=== PATIENT | male | born 1985 | race Caucasian/White ===

== ENCOUNTER → 2019-01-18 | Outpatient (CLI) | payer OTHER ==
[2019-01-19 14:12] LABS: AMP/METHAMP Negative (Negative); BARBITURATES Negative (Negative); BENZODIAZEPINES Negative (Negative); COCAINE Negative (Negative); METHADONE Negative (Negative); OPIATES Negative (Negative); PCP Negative (Negative)
--- NOTE | 2019-01-23 21:43 | SLE ---
[facility] [place] [address] POLYSOMNOGRAPHY STUDY Name: RAFAEL HALL Room #: REG [facility]#: [id number] Admission: 01/18/19 ������������������ Attend Phys: Mor Ortega MD Discharge: ������������������ Date of : 87 Report #: [id number] THIS REPORT FOR: //name// CC: Mor Ortega FAM unknown Patricio Sanchez DATE OF SERVICE: 01/19/2019 MULTIPLE SLEEP LATENCY TESTS ATTENDING PHYSICIAN: Dr. Patricio Sanchez. The patient is a 33-year-old who was referred to sleep lab for overnight polysomnogram followed by MSLT. The results of the polysomnogram are discussed previously. The patient has history of chronic insomnia resulting from posttraumatic stress disorder. He has an irregular sleep-wake pattern and on average sleeps about 3 hours at a time. Review of the sleep diaries confirms the patient's history. The patient underwent polysomnogram the night before MSLT and was found to have normal sleep efficiency of 96%. There was no evidence of clinically significant sleep disordered breathing and there was no evidence of clinically significant PLMS. Multiple sleep latency test was performed per protocol. The patient was allowed 5 daytime nap opportunities spaced at 2 hr intervals, beginning at 8:01 a.m. During the first nap session, the patient's sleep latency was 2 minutes and 36 seconds and no REM sleep was observed. During the second nap session sleep latency was 1 minute and 30 seconds and REM sleep was observed. During the third nap session, sleep latency was 5 minutes and 42 seconds and no REM sleep observed. During the fourth session, sleep latency was 14 minutes and no REM sleep was observed and during the fifth nap session, sleep latency was 17 minutes and 6 seconds and no REM sleep was observed. The patient's mean sleep latency for the 5 naps was 8 minutes and 13 seconds with 1 REM sleep period observed. IMPRESSION: 1. Abnormal multiple sleep latency test with a short mean sleep latency of 8 minutes. This is suggestive of Idiopathic hypersomnia. The patient does not meet the MSLT criteria for Narcolepsy. 2. Chronic sleep deprivation can also result in rebound hypersomnia and abnormal MSLT as above. RECOMMENDATIONS: [facility] [address] [place] [address] POLYSOMNOGRAPHY STUDY Name: RAFAELRAFAEL DAXA Room #: REG [facility]#: [id number] Admission: 01/18/19 ������������������ Attend Phys: Mor Ortega MD Discharge: ������������������ Date of : [birth year] Report #: [id number] 1. As discussed above, patient's multiple sleep latency tests was abnormal. Review of the patient's polysomnogram revealed that the patient's sleep efficiency was 96% and the sleep diary prior to the polysomnogram suggest that the patient was averaging about 3 hours of sleep. It is certainly possible that the abnormal multiple sleep latency test is the results of the patient's multiple prior nights of sleep deprivation. The patient had a reduced REM sleep on the overnight polysomnogram and the presence of one REM sleep on the daytime naps may be related to REM rebound. It is also interesting to note that the patient's sleep latency continued to prolong on the subsequent nap sessions, again suggesting that abnormal MSLT may be as a result of prior multiple nights sleep deprivation. 2. The patient should be referred to psychiatrist regarding his posttraumatic stress disorder, resulting in patient's chronic insomnia. 3. The patient would also be a candidate for cognitive behavior treatment for chronic insomnia. 4. Avoid [employer] depressants. 5. Cautioned regarding driving until the patient's hypersomnia is resolved. 6. The patient can be tried on stimulant medication to see any clinical benefit. However, the initial goal of treatment should be to increase sleep duration and regulate sleep cycle. 7. Good sleep hygiene is also recommended. ��������������������������������������������� <ELECTRONICALLY SIGNED> ���������������������������������������� By: Mor Ortega MD ��������������������������������������������� 01/23/19 2143 [id number] 1827 Mor Ortega MD /nt
--- NOTE | 2019-01-23 21:43 | SLE ---
[facility] [place] [address] POLYSOMNOGRAPHY STUDY Name: RAFAEL HALL Room #: REG [facility]#: [id number] Admission: 01/18/19 ������������������ Attend Phys: Mor Ortega MD Discharge: ������������������ Date of : 87 Report #: [id number] THIS REPORT FOR: //name// CC: Mor Ortega FAM unknown Patricio Sanchez MD DATE OF SERVICE: 01/18/2019 SLEEP STUDY ATTENDING PHYSICIAN: Dr. Patricio Sanchez. The patient is 33 years old who weighs 150 pounds with a BMI of 21.5. The patient has [id number] subjective hypersomnia with an [place] score of 15. The patient has history of posttraumatic stress disorder. 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 After that he has severe insomnia along with irregular sleep-wake pattern. Review of sleep diary suggests that he averages about 3 hours of sleep at a time. He was sent to the sleep lab for further evaluation. Polysomnogram was ordered followed by MSLT. The results of polysomnogram are available here. During the night study, the patient spent 428 minutes in bed and slept for 411 minutes with an excellent sleep efficiency of 96%. Sleep latency was 8.3 minutes with a REM latency of 95 minutes. Overall, sleep architecture showed normal stage 1 sleep, increased stage 2 sleep, normal slow wave and reduced REM sleep, which was 12.6% of the total sleep time. During the night study, the patient had 1 obstructive apnea, 2 mixed apneas, 1 central apnea and no hypopneas. The patient's apnea-hypopnea index for the entire night was 0.6 per hour with no REM related events observed. The patient's supine AHI was 1 per hour. EKG monitoring revealed an average heart rate of 81 beats per minute. No sustained arrhythmias observed. PLMS were seen at an index of 7 per hour and 1 per hour caused EEG arousals. Nocturnal oximetry study revealed an average oxygen saturation of 96% with the lowest of 93%. Due to low AHI, the patient did not meet the split night criteria for CPAP initiation. IMPRESSION: [facility] [address] [place] [address] POLYSOMNOGRAPHY STUDY Name: RAFAELRAFAEL MITTAL Room #: REG [facility]#: [id number] Admission: 01/18/19 ������������������ Attend Phys: Mor Ortega MD Discharge: ������������������ Date of : 87 Report #: [id number] 1. No clinically significant sleep disordered breathing. The patient's AHI was only 0.6 per hour. 2. Normal sleep efficiency of 96% in a patient who has a history of chronic insomnia with an average sleep of 3 hours at a time and irregular sleep-wake pattern. The normal sleep efficiency could be a result of prior night sleep deprivation with rebound sleep. Sleep state misperception clinically seems to be less likely. 3. No clinically significant periodic limb movements. 4. No clinically significant nocturnal hypoxia. RECOMMENDATIONS: 1. The patient did not meet the criteria for CPAP initiation. 2. Avoid [employer]GER [employer] depressants. 3. Cautioned regarding driving until the patient's hypersomnia is resolved. 4. Regarding the patient's history of chronic insomnia, the patient should be referred to psychiatrist for the treatment of his posttraumatic stress disorder. 5. The patient may be a candidate for cognitive behavior treatment for his chronic insomnia. 6. The patient underwent an MSLT the next day, which will be reported separately. ��������������������������������������������� <ELECTRONICALLY SIGNED> ���������������������������������������� By: Mor Ortega MD ��������������������������������������������� 01/23/19 2143 [id number] [id number] Mor Ortega MD /nt
== END ==
LOC: SLEEPLAB 12:05
PROVIDERS: Internal Medicine Critical Care Medicine
DX: G47.19 Other hypersomnia (principal); G47.00 Insomnia, unspecified; F43.10 Post-traumatic stress disorder, unspecified; Z88.8 Allergy status to other drugs, medicaments and biological substances